=== PATIENT | female | born 1955 | race Caucasian/White ===

== ENCOUNTER 2020-01-31 08:24 | Day surgery (SDC) | payer BC, OTHER ==
[2020-01-21 15:49] VITALS: BMI 25.0
[2020-01-31] MEDS ORDERED: LIDOCAINE HCL/PF 2% SDV 5ML VIAL ONE (08:44)
[2020-01-31] MEDS ORDERED: PROPOFOL 20 ML ONE ×3 (08:44)
[2020-01-31 08:49] VITALS: TEMP 97.9
[2020-01-31 10:22] VITALS: BP 110/62; PULSE 75
--- NOTE | 2020-02-02 16:02 | PATH ---
Surgical Pathology Report Patient Name: KATINA CORDOVA [facility]. Rec. #: [id number] /Age/Gender: 1955 (Age: 64) / F Account: [id number] Location: [facility] Taken: 01/31/2020 Received: 01/31/2020 Reported: 02/02/2020 Physicians: Wenceslao Hull M.D. Specimen(s) Received A: SECOND PORTION DUODENUM B: ANTRUM C: GASTRIC BODY Clinical History Screening, stomach issues Postoperative diagnosis: Gastritis, normal colon Final Diagnosis A. SECOND PORTION OF DUODENUM, BIOPSY: DUODENAL MUCOSA WITH NO PATHOLOGIC FINDINGS. B. GASTRIC ANTRUM, BIOPSY: MILD CHRONIC GASTRITIS WITH FEATURES OF REACTIVE GASTROPATHY. IMMUNOSTAIN IS NEGATIVE FOR H. PYLORI ORGANISMS. C. GASTRIC BODY, BIOPSY: MILD CHRONIC GASTRITIS. IMMUNOSTAIN IS NEGATIVE FOR H. PYLORI ORGANISMS. Electronically Signed Angelita Peng M.D. Gross Description A. Received in formalin, labeled "biopsy second portion duodenum" are 2 montel[place], irregular portions of soft tissue measuring 0.2 and 0.3 cm. in greatest dimension. The specimens are submitted in toto in one cassette. B. Received in formalin, labeled "biopsy gastric antrum" are 2 montelongo, irregular portions of soft tissue averaging 0.3 cm. in greatest dimension. The specimens are submitted in toto in one cassette. C. Received in formalin, labeled "biopsy gastric body" is a montelongo, irregular portion of soft tissue measuring 0.3 cm. in greatest dimension. The specimen is submitted in toto in one cassette. 02/01/2020 saudi02/01/2020
== END 2020-01-31 10:22 | disposition home or self-care (01) ==
LOC: FASU-ENDO 08:24
PROVIDERS: ATTEND Internal Medicine Gastroenterology
PROC: 0DB98ZX Excision of Duodenum, Via Natural or Artificial Opening Endoscopic, Diagnostic (ICD-10-PCS; 2020-01-31)
PROC: 0DB68ZX Excision of Stomach, Via Natural or Artificial Opening Endoscopic, Diagnostic (ICD-10-PCS; 2020-01-31)
PROC: 0DJD8ZZ Inspection of Lower Intestinal Tract, Via Natural or Artificial Opening Endoscopic (ICD-10-PCS; principal; 2020-01-31 09:03)
DX: Z86.010 Personal history of colon polyps (principal); K29.50 Unspecified chronic gastritis without bleeding; K31.9 Disease of stomach and duodenum, unspecified; R10.11 Right upper quadrant pain
CPT/HCPCS: 88305-TC; 88342-TC

== ENCOUNTER 2023-09-30 10:18 | Observation (INO) | payer OTHER ==
[2023-09-30 10:36] VITALS: BMI 26.6
[2023-09-30] MEDS ORDERED: ONDANSETRON 4 MG/2 ML VIAL ONE (10:50)
[2023-09-30] MEDS ORDERED: FAMOTIDINE 20 MG/50 ML IVPB 20 MG/50 ML MG IVPB ONE (10:50)
[2023-09-30] MEDS: FAMOTIDINE 20 MG/50 ML IVPB 20 MG/50 ML MG IVPB ONE (11:03)
[2023-09-30] MEDS: ONDANSETRON 4 MG/2 ML VIAL IVPUSH ONE (11:03)
[2023-09-30] MEDS: SODIUM CHLORIDE 0.9% 500 ML INFUS.BAG IV ONE (11:03)
[2023-09-30 11:24] LABS: HEMATOCRIT 42.9 % (32.4-45.2); HEMOGLOBIN 14.3 G/dL (10.7-15.3); MCH 29.2 pg (25.7-33.7); MCHC 33.3 g/dl (32.0-36.0); MEAN PLT VOLUME 8.7 fl (7.5-11.1); PLATELET COUNT 244.6 10^3/uL (134-434); RBC 4.88 10^6/uL (3.60-5.2); WHITE BLOOD COUNT 8.9 10^3/uL (4.0-10.8)
[2023-09-30 11:53] LABS: ALBUMIN 4.4 g/dl (3.4-5.0); BILIRUBIN,TOTAL 0.6 mg/dl (0.2-1); CALCIUM 9.4 mg/dl (8.5-10.1); CREATININE 0.8 mg/dl (0.6-1.3); PHOSPHOROUS 1.6 (2.5-4.9); POTASSIUM 4.8 mmol/L (3.5-5.1); TOT PROT 7.1 g/dl (6.4-8.2)
[2023-09-30 12:16] LABS: LACTIC ACID 3.1 mmol/L (0.4-2.0)
[2023-09-30 12:40] LABS: PLATELET ESTIMATE ADEQUATE
[2023-09-30] MEDS ORDERED: ACETAMINOPHEN 325 MG TABLET (FP) PO PRN (20:27)
[2023-09-30] MEDS ORDERED: ONDANSETRON 4 MG/2 ML VIAL IVPUSH PRN (20:27)
[2023-09-30] MEDS ORDERED: SODIUM CHLORIDE 1,000 ML IV SCH (20:30)
[2023-10-01] MEDS ORDERED: ACETAMINOPHEN 325 MG TABLET (FP) PO PRN (07:34)
[2023-10-01 07:45] LABS: HEMATOCRIT 37.9 % (32.4-45.2); HEMOGLOBIN 12.8 G/dL (10.7-15.3); MCHC 33.7 g/dl (32.0-36.0); MEAN CELL VOLUME 88.9 fl (80-96); MEAN PLT VOLUME 8.5 fl (7.5-11.1); RBC 4.26 10^6/uL (3.60-5.2); RDW 14.4 % (11.6-15.6); WHITE BLOOD COUNT 5.8 10^3/uL (4.0-10.8)
[2023-10-01 08:15] LABS: CALCIUM 8.7 mg/dl (8.5-10.1); CREATININE 0.7 mg/dl (0.6-1.3); PHOSPHOROUS 2.5 (2.5-4.9); POTASSIUM 4.1 mmol/L (3.5-5.1)
[2023-10-01 08:52] LABS: INR 1.05 (0.83-1.09); PROTHROMBIN TIME (PATIENT) 12.2 SEC (9.7-13.0)
[2023-10-01 08:54] LABS: ACTIVATED PTT 28.6 SECONDS (25.2-36.5)
[2023-10-01 10:03] VITALS: RESP 18
[2023-10-01 14:34] VITALS: BP 114/54; PULSE 75; TEMP 98.4
== END 2023-10-01 17:00 | disposition home or self-care (01) ==
LOC: FER 10:18 → FM/S 15:51 → INTOOBSV 15:51
PROVIDERS: ADMIT Internal Medicine; ATTEND Internal Medicine
PROC: 3E033GC Introduction of Other Therapeutic Substance into Peripheral Vein, Percutaneous Approach (ICD-10-PCS; principal; 2023-09-30)
PROC: 3E0337Z Introduction of Electrolytic and Water Balance Substance into Peripheral Vein, Percutaneous Approach (ICD-10-PCS; 2023-09-30)
DX: A08.4 Viral intestinal infection, unspecified (principal); R19.7 Diarrhea, unspecified; G51.0 Bell's palsy; K92.1 Melena; R55 Syncope and collapse; A69.20 Lyme disease, unspecified
CPT/HCPCS: 0241U-QW; 36415; 70450-TC; 71045-TC-FY; 72125-TC; 74177-TC; 80048; 80053; 80061; 83036; 83605; 83690; 83735; 84100; 84439; 84443; 84484; 85025; 85610; 85730; 93005; 93306-TC; 96361; 96365; 96375; 99285-25; G0378; Q9967